=== PATIENT | male | born 1960 | race Caucasian/White ===

== ENCOUNTER → 2020-04-07 | Outpatient (CLI) | payer OTHER ==
[2020-04-07 12:17] LABS: INR 0.9 (<1.2); Partial Thromboplastin Time 23.6 sec (22.0-30.0); Prothrombin Time 9.4 sec (9.0-12.0)
[2020-04-07 12:32] LABS: Appearance,Urine Clear (Clear); Bilirubin,Urine Negative (Negative); Blood,Urine Negative (Negative); Color,Urine Yellow; Glucose,Urine (UA) Negative (Negative); Ketones,Urine 1+ (Negative); Leukocyte Esterase,Urine Negative (Negative); Nitrite,Urine Negative (Negative); Protein,Urine Trace (Negative); Specific Gravity,Urine 1.015 (1.001-1.035); Urobilinogen,Urine <2.0 mg/dL (<2.0)
== END | disposition home or self-care (01) ==
LOC: LABPAT 10:10
PROVIDERS: ATTEND Orthopaedic Surgery
DX: Z01.818 Encounter for other preprocedural examination (principal); Z01.812 Encounter for preprocedural laboratory examination
CPT/HCPCS: 36415; 81003; 85610; 85730; 87070

== ENCOUNTER 2020-04-12 05:39 | Day surgery (SDC) | payer OTHER ==
[2020-04-06 10:47] VITALS: BMI 23.3
[~2020-04-12 05:39] MED LIST: ACETAMINOPHEN TAB 500 MG TAB PO ONE; GABAPENTIN 300 MG CAP PO ONE; MELOXICAM 7.5 MG TAB PO ONE; TRANEXAMIC ACID 1,000 MG in SODIUM CHLORIDE 0.9% 100 ML IVPB ONE
[2020-04-12] MEDS ORDERED: MIDAZOLAM 2 MG/2 ML VIAL IV PRN (05:45)
[2020-04-12] MEDS ORDERED: LIDOCAINE 1% (10MG/ML) FOR IV START INTRADERMA PRN (05:45)
[2020-04-12] MEDS ORDERED: DEXAMETHASONE SOD PHOSPHATE 10 MG/ML 1 ML VIAL IV ONE (05:45)
[2020-04-12] MEDS ORDERED: fentaNYL (PF) 50 MCG/ML 2 ML AMP IV PRN (05:45)
[2020-04-12] MEDS ORDERED: ONDANSETRON 4 MG/2 ML VIAL IVP ONE (05:45)
[2020-04-12] MEDS ORDERED: HYDROmorphone 0.5 MG/0.5 ML SYRINGE IVP PRN ×3 (05:45→07:09)
[2020-04-12] MEDS ORDERED: ACETAMINOPHEN TAB 500 MG TAB ONE (06:01)
[2020-04-12] MEDS: LACTATED RINGERS 1,000 ML IV SCH (06:20)
[2020-04-12] MEDS ORDERED: ceFAZolin 3,000 MG in SODIUM CHLORIDE 0.9% IRRIGATIO 3,000 ML IRRIGATION ONE (07:06)
[2020-04-12] MEDS ORDERED: diazePAM 5 MG TAB PO PRN (07:09)
[2020-04-12] MEDS ORDERED: NALOXONE 0.4 MG/ML 1 ML VIAL IV PRN (07:09)
[2020-04-12] MEDS ORDERED: MAGNESIUM HYDROXIDE 2,400 MG/10 ML CUP PO PRN (07:09)
[2020-04-12] MEDS ORDERED: HYDROcodone/APAP 5-325MG 1 EACH TAB PO PRN (07:09)
[2020-04-12] MEDS ORDERED: HYDROmorphone 1 MG/ML 1 ML SYRINGE IVP PRN (07:09)
[2020-04-12] MEDS ORDERED: ONDANSETRON 4 MG/2 ML VIAL IVP PRN (07:09)
[2020-04-12] MEDS ORDERED: hydrOXYzine pamoate 25 MG CAP PO PRN (07:09)
[2020-04-12] MEDS: ROPIVACAINE 246.25 MG, EPINEPHrine 0.5 MG, KETOROLAC 30 MG, cloNIDine HCL/PF 80 MCG, WA... MISCELLANE ONE ×10 (07:47→08:21)
[2020-04-12] MEDS ORDERED: LACTATED RINGERS 1,000 ML IV ONE (08:14)
--- NOTE | 2020-04-12 08:45 | P.OP ---
Date of Procedure: 04/12/20 Preoperative Diagnosis: Severe osteoarthritis right hip Postoperative Diagnosis: Severe osteoarthritis right hip Procedure(s) Performed: Right total hip arthroplasty with a direct anterior approach Implants: Anna and nephew Polarstem size 6 standard Anna & Nephew R3, 3 hole acetabular shell, 52 mm Anna & Nephew reflection 6.5 mm cancellus screw, 20 mm 2 Anna & Nephew R3, XLPE 20 acetabular liner Anna & Nephew Oxinium femoral head 36 m, +4 All components were press-fit. The articulation is Oxinium on polyethylene. Anesthesia: spinal Surgeon: Artem Howell Senior Peoplesoft Developer #1: Opal Rico Estimated Blood Loss (ml): 150 Pathology: other (Femoral head) Condition: stable Disposition: PACU Indications for Procedure: After failure of conservative treatment we discussed the surgical and nonsurgical treatment options at length. Patient wishes to proceed with a total hip arthroplasty with a direct anterior approach. Complications specific to this procedure were discussed at length, including but not limited to infection, leg length discrepancy, dislocation, and nerve injury. Covid-19 was also discussed at length with the patient, and they are aware of the current policies and procedures. The patient was given the option of delaying surgery, but they elect to proceed knowing these risks. Patient is aware of all these complications and informed consent was obtained Operative Findings: The operative findings are consistent with severe osteoarthritis the right hip Description of Procedure: Patient was seen and evaluated in the preoperative area, consent was reviewed, and the surgical site was marked with a skin marker. Patient was then brought to the operating room and given prophylactic antibiotics intravenously. 1 g of Tranexamic acid was also given. A spinal anesthetic was administered by the anesthesia department. The patient was then placed on the [place] table with the bony prominences well-padded. The hip area was then prepped and draped in usual sterile fashion. A universal timeout was then performed, which confirmed the patient's name, surgical site, ALLERGIES, and procedure being performed. Next the incision site was located at 1 cm distal and 1 cm lateral to the anterior superior iliac spine. The skin and subcutaneous tissues were sharply incised. Incision was carefully dissected down to the fascia overlying the tensor fascia camilo muscle. This fascia was then incised in line with the incision. Next, using blunt finger dissection, the tensor fascia camilo muscle was dissected off its investing fascia. The muscle was then carefully retracted laterally with a cobra retractor over the lateral neck of the femur. Next, the circumflex vessels were identified and cauterized using the AquaMantis device. The anterior hip capsule was then exposed. The capsule was then opened and an inverted T fashion. Cobra retractors were then placed intracapsularly. The proximal femur was then visualized. The femoral neck was then osteotomized appropriate level above the lesser trochanter. Small amount of traction was placed with the [place] table. A small wedge of bone was then removed from the remaining femoral head. Next, using a corkscrew femoral head was easily removed from the acetabulum. On gross visual inspection, the femoral head had complete loss of articular cartilage in multiple periarticular osteophytes. Attention was then turned to the acetabulum. the acetabulum was exposed and any remaining labrum was excised. Sequential reaming of the acetabulum was performed using fluoroscopic guidance. When the appropriate size was reached, a trial was then placed. The position and fit of the trial was checked with fluoroscopy. The trial was then removed. Then, using fluoroscopic guidance, the final implant was impacted at 20 of anteversion and 40 of abduction, and fully seated in the acetabulum. 2 screws were then placed in the acetabulum. Again fluoroscopy was used to check po sition of the screws. Next, the liner was then impacted, with a 20 elevated liner located in the anterior superior quadrant. Component locking was confirmed. Attention was then directed to the femur. With the aid of the [place] table, the femur was externally rotated to approximately 130, extended, and abducted under the opposite leg. A side hook was then placed under the proximal femur, and the side hook elevator was used to elevate the proximal femur. Retractors were then placed. A capsular release was performed, as well as a release of the conjoined tendon, which afforded excellent visualization of the proximal femur. Next, a box osteotome was used to lateralize the proximal femur. A baseball sewer hand was then used to locate the femoral canal. Sequential broaching was then performed with appropriate size which afforded excellent fixation in the proximal femur. A trial was then placed with appropriate head and neck, and the hip was gently reduced with the aid of the [place] table. Fluoroscopy was then used to check position of the components, as well as to ensure equal leg lengths. The hip was then gently dislocated and the trials were then removed. Final implants were then impacted and the hip was again reduced. Final fluoroscopic x-rays confirmed that the components were in anatomic position, as well as equal leg lengths. The hip was also taken through range of motion, and found to be stable. The hip was then copiously irrigated with antibiotic solution with pulsatile lavage. The hip was then irrigated with Irrisept solution. The soft tissues were then injected with a ropivacaine solution, which consisted of 246.25 mg of ropivacaine, 0.5 mg of epinephrine, 30 mg of Toradol, 80 g of clonidine, and 48.45 mL of sterile water, for a total of 100 mL of fluid injected. A second dose of 1 g of Tranexamic acid was also given. the fascia was then closed with 2-0 strata fix suture. The subcutaneous tissue was closed with 3-0 Vicryl. The subcuticular tissue was closed with 3-0 strata fix suture. The skin was then closed with Dermabond glue and a sterile silver dressing. The patient was then transferred to the recovery room in stable condition. The accounts receivable assistant KOJO Bender was required due to the complexity of surgery, and the need for skilled surgical instrument technician for positioning, draping, exposure, retraction, and closure of the wound.
--- NOTE | 2020-04-12 08:49 | FL ---
EXAMINATION TYPE: FL guidance operating room DATE OF EXAM: 04/12/2020 HISTORY: Fluoroscopy time 36 seconds of fluoroscopy provided. IMPRESSION: 1. Fluoroscopy time.
--- NOTE | 2020-04-12 08:53 | XR ---
EXAMINATION TYPE: XR Hip Complete RT DATE OF EXAM: 04/12/2020 COMPARISON: NONE HISTORY: Postop TECHNIQUE: One view submitted. FINDINGS: There is postsurgical change in near anatomic alignment. There is soft tissue edema and emphysema. IMPRESSION: 1. Postoperative change. Appears in near-anatomic alignment.
[2020-04-12] MEDS: SODIUM CHLORIDE 0.9% 1,000 ML IV SCH (10:20)
[2020-04-12] MEDS: LOSARTAN 50 MG TAB PO SCH (11:31)
[2020-04-12] MEDS: NICOTINE 21MG/24HR PATCH TRANSDERM SCH (11:32)
--- NOTE | 2020-04-12 11:54 | P.HPIM ---
History of Present Illness Chief Complaint: Right hip osteoarthritis This is a 59-year-old male with past medical history noted below significant for severe osteoarthritis of the right hip who was admitted to the hospital for elective total right hip arthroplasty. Patient is postoperative day #0. He is doing fairly well. Pain is well controlled. He does not have any complaints. I was asked to see him for medical management. Patient reported that he smokes one pack of cigarettes per day. Review of Systems Review of system: 14 points review of systems were obtained and were negative except to what were mentioned in the HPI. Past Medical History Past Medical History: Cancer, Hypertension, Osteoarthritis (OA) Additional Past Medical History / Comment(s): HX RIGHT KIDNEY CANCER (NEPHRECTOMY 28 YRS OLD), BACK AND RIGHT HIP PAIN. History of Any Multi-Drug Resistant Organisms: None Reported Past Surgical History: Orthopedic Surgery Additional Past Surgical History / Comment(s): RIGHT NEPHRECTOMY, LEFT ANKLE & LEFT ARM SURGERY WITH HARDWARE. Past Anesthesia/Blood Transfusion Reactions: No Reported Reaction Past Psychological History: No Psychological Hx Reported Smoking Status: Heavy tobacco smoker Past Alcohol Use History: Daily Additional Past Alcohol Use History / Comment(s): SMOKES 1 PPD, STARTED SMOKING AGE 14. DRINKS 2-3 BEERS / DAILY Past Drug Use History: Marijuana Additional Drug Use History / Comment(s): OCCASIONAL MARIJUANA USE. - Past Family History Mother Family Medical History: No Reported History Medications and Allergies Home Medications Medication Instructions Recorded Confirmed Type Ibuprofen [Motrin Ib] 400 mg PO DIRECTED PRN 04/06/20 04/12/20 History Losartan Potassium 100 mg PO DAILY 04/06/20 04/12/20 History traMADol HCl [Ultram] 50 mg PO DAILY PRN 04/06/20 04/12/20 History Allergies Allergy/AdvReac Type Severity Reaction Status Date / Time Penicillins Allergy Unknown Swelling, Verified 04/12/20 05:57 childhood Physical Exam Vitals: Vital Signs Temp Pulse Pulse Resp BP Pulse Ox 04/12/20 10:17 16 04/12/20 10:00 97.4 F L 58 L 16 174/91 100 04/12/20 09:30 55 L 16 160/72 100 04/12/20 09:15 62 16 149/68 100 04/12/20 09:00 66 16 159/72 100 04/12/20 08:50 97.3 F L 73 16 144/69 100 04/12/20 06:22 151/97 04/12/20 06:02 97.6 F 115 H 18 100 Intake and Output 04/11/20 04/12/20 04/12/20 22:59 06:59 14:59 Intake Total 200 1201 Output Total 150 Balance 200 1051 Intake: IV 200 1201 Output: Estimated Blood Loss 150 Other: Weight 73.1 kg 73.1 kg General: The patient is awake and alert, in no distress Eye: there is normal conjunctiva bilaterally. Neck: The neck is supple, there is no JVD. Cardiovascular: Normal S1-S2, no S3-S4, no murmurs. Respiratory: Lungs clear to auscultation bilaterally Gastrointestinal: Abdomen is soft, nontender Musculoskeletal: There is no pedal edema. Neurological:. Speech is normal. Skin: Skin is warm and dry Thrombosis Risk Factor Assmnt - Choose All That Apply Any of the Below Risk Factors Present?: Yes Each Factor Represents 1 point: Age 41-60 years Each Risk Factor Represents 2 Points: Major surgery Each Risk Factor Represents 5 Points: Elective major lower extremity arthoplasty Thrombosis Risk Factor Assessment Total Risk Factor Score: 8 Thrombosis Risk Factor Assessment Level: High Risk Assessment and Plan Assessment: 1. Postoperative day #0 status post total right hip arthroplasty. Postoperative care per orthopedic surgery. PT/OT evaluation. Pain control. 2. DVT prophylaxis, currently on full dose aspirin twice daily per orthopedic protocol 3. Essential hypertension, continue home dose of losartan 4. Tobacco abuse, counseled to quit. Nicotine patch ordered.
[2020-04-12] MEDS: HYDROcodone/APAP 5-325MG 1 EACH TAB PO PRN ×2 (14:31→19:34)
[2020-04-12 19:39] VITALS: RESP 18
[2020-04-12] MEDS ORDERED: SENNOSIDES-DOCUSATE SODIUM 1 EACH TAB PO SCH (21:00)
[2020-04-13] MEDS: SODIUM CHLORIDE 0.9% 1,000 ML IV SCH (00:06)
[2020-04-13] MEDS: HYDROcodone/APAP 5-325MG 1 EACH TAB PO PRN ×3 (00:36→12:49)
[2020-04-13] MEDS: LACTATED RINGERS 1,000 ML IV SCH (02:43)
[2020-04-13] MEDS: LOSARTAN 50 MG TAB PO SCH (08:24)
[2020-04-13] MEDS: NICOTINE 21MG/24HR PATCH TRANSDERM SCH (08:24)
[2020-04-13 08:48] LABS: Anisocytosis Slight; Basophils % (A) 0 %; Eosinophils # (A) 0.1 k/uL (0-0.7); Eosinophils % (A) 2 %; HGB 7.2 gm/dL (13.0-17.5); Hypochromasia Marked; Lymphocytes # (A) 0.8 k/uL (1.0-4.8); Lymphocytes % (A) 15 %; MCH 22.4 pg (25.0-35.0); MCHC 28.9 g/dL (31.0-37.0); MCV 77.4 fL (80.0-100.0); Mean Platelet Volume 7.8; Microcytosis Slight; Monocytes # (A) 0.4 k/uL (0-1.0); Monocytes % (A) 8 %; Neutrophils # (A) 3.8 k/uL (1.3-7.7); Neutrophils % (A) 74 %; Platelet Count 259 k/uL (150-450); RBC 3.23 m/uL (4.30-5.90); RDW 17.7 % (11.5-15.5); WBC 5.1 k/uL (3.8-10.6)
[2020-04-13] MEDS ORDERED: MELOXICAM 7.5 MG TAB PO SCH (09:00)
[2020-04-13] MEDS ORDERED: ASPIRIN 325 MG TAB PO SCH (09:00)
--- NOTE | 2020-04-13 09:07 | P.DS ---
Providers Expected date of discharge: 04/13/20 Attending physician: Artem Howell Consults: 04/12/20 07:09 Consult Physician Routine Consulting Provider: Angela Butler Consult Reason/Comments: medical management Do you want consulting provider notified?: Yes Primary care physician: Kingsley Saavedra - Discharge Diagnosis(es) (1) S/P total hip arthroplasty Current Visit: Yes Status: Acute (2) Osteoarthritis of right hip Current Visit: Yes Status: Acute Hospital Course: This is a 59-year-old male with known history of degenerative arthritis of the right hip. The patient presents for evaluation. After discussion and consideration patient elects to proceed with total hip arthroplasty. The patient is seen preoperatively by Dr. Howell and medically cleared for surgery by their primary care physician. Patient is admitted to [facility] on 04/12/2020 for total hip arthroplasty. The procedures performed without complication or sequelae. The patient is doing well postoperatively. Labs and vital signs are stable on day of discharge. On day of discharge patient's hip incision is healing well. There is minimal erythema. There is no drainage noted at this time. There is minimal soft tissue swelling to the hip and thigh. Patient has full foot and ankle motion without difficulty or pain. Calf is soft and nontender to palpation. Neurovascular status to the right lower extremity is intact. [facility] is [facility] home in good condition. Opioid start talking form is reviewed and signed at patient bedside. Please see med rec for accurate list of home medications. Plan - Discharge Summary Discharge Rx Participant: Yes New Discharge Prescriptions: New Aspirin 325 mg PO BID #60 tab HYDROcodone/APAP 5-325MG [Superior 5-325] 1 - 2 tab PO Q6HR PRN #48 tab PRN Reason: Pain Sennosides [Senokot] 2 tab PO DAILY PRN #60 tablet PRN Reason: Constipation No Action Losartan Potassium 100 mg PO DAILY traMADol HCl [Ultram] 50 mg PO DAILY PRN PRN Reason: Pain Ibuprofen [Motrin Ib] 400 mg PO DIRECTED PRN PRN Reason: Pain Discharge Medication List Ibuprofen [Motrin Ib] 400 mg PO DIRECTED PRN 04/06/20 [History] Losartan Potassium 100 mg PO DAILY 04/06/20 [History] traMADol HCl [Ultram] 50 mg PO DAILY PRN 04/06/20 [History] Aspirin 325 mg PO BID #60 tab 04/13/20 [Rx] HYDROcodone/APAP 5-325MG [Superior 5-325] 1 - 2 tab PO Q6HR PRN #48 tab 04/13/20 [Rx] Sennosides [Senokot] 2 tab PO DAILY PRN #60 tablet 04/13/20 [Rx] Follow up Appointment(s)/Referral(s): [facility], [NON-STAFF] - Artem Howell DO [Doctor of Osteopathic Medicine] - 2 Weeks Activity/Diet/Wound Care/Special Instructions: Weightbearing as tolerated with walker. Leave dressing intact. Dressing may be removed by home care nurse or by patient in 10 days. May shower with dressing on. Recommend use of compression stockings daily until follow up to help prevent swelling and blood clots. May remove at night before sleeping. Please follow-up with [facility] in 2 weeks and call with any questions or concerns, . Discharge Disposition: HOME WITH HOME HEALTH SERVICES
[2020-04-13 14:29] LABS: Anisocytosis Slight; HCT 24.6 % (39.0-53.0); HGB 7.5 gm/dL (13.0-17.5); Hypochromasia Marked; MCHC 30.3 g/dL (31.0-37.0); MCV 79.1 fL (80.0-100.0); Mean Platelet Volume 7.2; Microcytosis Slight; Platelet Count 291 k/uL (150-450); RBC 3.11 m/uL (4.30-5.90); RDW 17.3 % (11.5-15.5); WBC 6.4 k/uL (3.8-10.6)
--- NOTE | 2020-04-13 16:06 | P.PN ---
Subjective Progress Note Date: 04/13/20 (delayed charting seen at 0945) Principal diagnosis: hip pain Patient is a 59-year-old male with a past medical history of kidney cancer, hypertension, and osteoarthritis who presented for elective right total hip arthroplasty. Patient seen and examined at bedside. He states his pain is well controlled. He denies any swelling in his hip or knee. He denies any lightheadedness, dizziness, shortness of breath, or chest pain. He states that his hemoglobin was low during his preoperative evaluation with his primary care nurse practitioner. HgB at PCP was 9.2 Objective - Vital Signs Vital signs: Vital Signs Temp 98.3 F 04/13/20 14:43 Pulse 96 04/13/20 14:43 Resp 18 04/13/20 14:43 BP 108/74 04/13/20 14:43 Pulse Ox 100 04/13/20 14:43 Intake & Output 04/12/20 04/13/20 04/13/20 18:59 06:59 18:59 Intake Total 1201 Output Total 550 350 Balance 651 -350 Weight 73.1 kg Intake: IV 1201 Output: Urine 400 350 Estimated Blood Loss 150 Other: # Voids 1 3 - Exam General: non toxic, no distress, appears at stated age Derm: warm, dry Head: atraumatic, normocephalic, symmetric Eyes: EOMI, no lid lag, anicteric sclera Mouth: no lip lesion, mucus membranes moist Cardiovascular: S1S2 reg, no murmur, positive posterior tibial pulse bilateral, Lungs: CTA bilateral, no rhonchi, no rales , no accessory muscle use Abdominal: soft, nontender to palpation, no guarding, no appreciable organomegaly Ext: no gross muscle atrophy, no edema, no contractures Neuro: CN II-XI grossly intact, no focal neuro deficits Psych: Alert, oriented, appropriate affect - Labs CBC & Chem 7: 04/13/20 11:32 Labs: Abnormal Lab Results - Last 24 Hours (Table) 04/13/20 04/13/20 Range/Units 08:33 11:32 RBC 3.23 L 3.11 L (4.30-5.90) m/uL Hgb 7.2 L 7.5 L (13.0-17.5) gm/dL Hct 25.0 L 24.6 L (39.0-53.0) % MCV 77.4 L 79.1 L (80.0-100.0) fL MCH 22.4 L 24.0 L (25.0-35.0) pg MCHC 28.9 L 30.3 L (31.0-37.0) g/dL RDW 17.7 H 17.3 H (11.5-15.5) % Lymphocytes # 0.8 L (1.0-4.8) k/uL Assessment and Plan Assessment: Chronic anemia with acute blood loss anemia -Ferrous sulfate 325 mg once daily oral for 30 days -Called PCPs office baseline hemoglobin is 9.2, repeat CBC approximately 6 hours after first is 7.5 which is stable from 7.2. -Repeat CBC in 1 week -Follow up with PCP Hypertension -Resume home medications of losartan Right knee hip arthroplasty Medically stable for discharge.
[2020-04-15 05:19] VITALS: BP 108/74; PULSE 96; TEMP 98.3
== END 2020-04-13 16:38 | disposition home health service (06) ==
LOC: OR 05:39 → 4SSUR 09:04 → OR 04-13 16:38
PROVIDERS: ATTEND Orthopaedic Surgery
DX: M16.0 Bilateral primary osteoarthritis of hip (principal); I12.9 Hypertensive chronic kidney disease with stage 1 through stage 4 chronic kidney disease, or unspecified chronic kidney disease; N18.9 Chronic kidney disease, unspecified; D62 Acute posthemorrhagic anemia; F17.210 Nicotine dependence, cigarettes, uncomplicated; Z85.528 Personal history of other malignant neoplasm of kidney; Z79.1 Long term (current) use of non-steroidal anti-inflammatories (NSAID); Z79.899 Other long term (current) drug therapy; Z88.0 Allergy status to penicillin; Z90.5 Acquired absence of kidney; Z82.49 Family history of ischemic heart disease and other diseases of the circulatory system; Z98.49 Cataract extraction status, unspecified eye
CPT/HCPCS: 27130; 97116; 97110; 97161; 97535; 97165; 86891; 88305; 85025; 85027; 88311; 73501; 73502; C1776; S4990 ×2; J0171; J1100; J0690 ×2; J2405; J1885; J1170; J2795; J0735; 86850; 86900; 86901

== ENCOUNTER → 2020-06-23 | Outpatient (CLI) | payer OTHER ==
[2020-06-23 14:41] LABS: Anisocytosis Slight; HCT 31.9 % (39.0-53.0); HGB 9.5 gm/dL (13.0-17.5); Hypochromasia Marked; MCH 22.2 pg (25.0-35.0); MCHC 29.8 g/dL (31.0-37.0); MCV 74.4 fL (80.0-100.0); Mean Platelet Volume 6.7; Microcytosis Moderate; Platelet Count 342 k/uL (150-450); RBC 4.29 m/uL (4.30-5.90); RDW 17.5 % (11.5-15.5); WBC 6.3 k/uL (3.8-10.6)
[2020-06-23 14:45] LABS: Appearance,Urine Clear (Clear); Bilirubin,Urine Negative (Negative); Blood,Urine Negative (Negative); Color,Urine Yellow; Glucose,Urine (UA) Negative (Negative); Ketones,Urine 1+ (Negative); Leukocyte Esterase,Urine Negative (Negative); Nitrite,Urine Negative (Negative); PH, Urine 6.5 (5.0-8.0); Protein,Urine Trace (Negative); Specific Gravity,Urine 1.016 (1.001-1.035); Urobilinogen,Urine <2.0 mg/dL (<2.0)
[2020-06-23 14:53] LABS: Albumin 4.2 g/dL (3.5-5.0); Calcium 9.5 mg/dL (8.4-10.2); INR 0.9 (<1.2); Partial Thromboplastin Time 24.9 sec (22.0-30.0); Potassium 5.2 mmol/L (3.5-5.1); Prothrombin Time 9.6 sec (9.0-12.0); Total Bilirubin 0.5 mg/dL (0.2-1.3); Total Protein 7.3 g/dL (6.3-8.2)
== END | disposition home or self-care (01) ==
LOC: LABPAT 13:28
PROVIDERS: ATTEND Orthopaedic Surgery
DX: Z01.818 Encounter for other preprocedural examination (principal); Z01.812 Encounter for preprocedural laboratory examination; M16.12 Unilateral primary osteoarthritis, left hip
CPT/HCPCS: 36415; 80053; 81003; 85027; 85610; 85730

== ENCOUNTER 2020-06-28 06:19 | Observation (INO) | payer OTHER ==
[2020-06-23 18:30] VITALS: BMI 23.4
[~2020-06-28 06:19] MED LIST changes: +DEXAMETHASONE SOD PHOSPHATE 10 MG/ML 1 ML VIAL IV ONE; +LIDOCAINE 1% (10MG/ML) FOR IV START INTRADERMA PRN; +MIDAZOLAM 2 MG/2 ML VIAL IV PRN; +ONDANSETRON 4 MG/2 ML VIAL IVP ONE; +ROPIVACAINE 246.25 MG, EPINEPHrine 0.5 MG, KETOROLAC 30 MG, cloNIDine HCL/PF 80 MCG, WA... MISCELLANE ONE
[2020-06-28] MEDS ORDERED: LIDOCAINE 1% (10MG/ML) FOR IV START INTRADERMA ONE (07:19)
[2020-06-28] MEDS: LACTATED RINGERS 1,000 ML IV SCH ×2 (07:35→22:54)
[2020-06-28] MEDS ORDERED: TRANEXAMIC ACID 1,000 MG/10 ML VIAL ONE (08:51)
[2020-06-28] MEDS ORDERED: SODIUM CHLORIDE 0.9% 100 ML BAG ONE (08:51)
[2020-06-28] MEDS ORDERED: KETAMINE 10 MG/ML 20 ML VIAL ONE (08:51)
[2020-06-28] MEDS ORDERED: fentaNYL (PF) 50 MCG/ML 2 ML AMP ONE (08:51)
[2020-06-28] MEDS ORDERED: MIDAZOLAM 2 MG/2 ML VIAL ONE (08:51)
[2020-06-28] MEDS ORDERED: PROPOFOL 10 MG/ML 20 ML VIAL IV ONE (08:51)
[2020-06-28] MEDS ORDERED: hydrOXYzine pamoate 25 MG CAP PO PRN (09:18)
[2020-06-28] MEDS ORDERED: NALOXONE 0.4 MG/ML 1 ML VIAL IV PRN (09:18)
[2020-06-28] MEDS ORDERED: MAGNESIUM HYDROXIDE 2,400 MG/10 ML CUP PO PRN (09:18)
[2020-06-28] MEDS ORDERED: HYDROmorphone 0.5 MG/0.5 ML SYRINGE IVP PRN (09:18)
[2020-06-28] MEDS ORDERED: diazePAM 5 MG TAB PO PRN (09:18)
[2020-06-28] MEDS ORDERED: HYDROcodone/APAP 5-325MG 1 EACH TAB PO PRN (09:18)
[2020-06-28] MEDS ORDERED: ONDANSETRON 4 MG/2 ML VIAL IVP PRN (09:18)
[2020-06-28] MEDS ORDERED: ceFAZolin 3,000 MG in SODIUM CHLORIDE 0.9% IRRIGATIO 3,000 ML IRRIGATION ONE (09:30)
--- NOTE | 2020-06-28 10:33 | P.OP ---
Date of Procedure: 06/28/20 Preoperative Diagnosis: Severe osteoarthritis left hip Postoperative Diagnosis: Severe osteoarthritis left hip Procedure(s) Performed: Left total hip arthroplasty with a direct anterior approach Implants: Anna and nephew Polarstem size 6 standard Anna & Nephew R3, 3 hole acetabular shell, 58 mm Anna & Nephew reflection 6.5 mm cancellus screw, 20 mm 2 Anna & Nephew R3, XLPE 20 acetabular liner Anna & Nephew Oxinium femoral head 36 m, +4 All components were press-fit. The articulation is Oxinium on polyethylene. Anesthesia: spinal Surgeon: Artem Howell Strategic Analyst #1: Penny Metzger Estimated Blood Loss (ml): 100 Pathology: other (Femoral head) Condition: stable Disposition: PACU Indications for Procedure: After failure of conservative treatment we discussed the surgical and nonsurgical treatment options at length. Patient wishes to proceed with a total hip arthroplasty with a direct anterior approach. Complications specific to this procedure were discussed at length, including but not limited to infection, leg length discrepancy, dislocation, and nerve injury. Covid-19 was also discussed at length with the patient, and they are aware of the current policies and procedures. The patient was given the option of delaying surgery, but they elect to proceed knowing these risks. Patient is aware of all these complications and informed consent was obtained Operative Findings: The operative findings are consistent with severe osteoarthritis of the left hip Description of Procedure: Patient was seen and evaluated in the preoperative area, consent was reviewed, and the surgical site was marked with a skin marker. Patient was then brought to the operating room and given prophylactic antibiotics intravenously. 1 g of Tranexamic acid was also given. A spinal anesthetic was administered by the anesthesia department. The patient was then placed on the [place] table with the bony prominences well-padded. The hip area was then prepped and draped in usual sterile fashion. A universal timeout was then performed, which confirmed the patient's name, surgical site, ALLERGIES, and procedure being performed. Next the incision site was located at 1 cm distal and 1 cm lateral to the anterior superior iliac spine. The skin and subcutaneous tissues were sharply incised. Incision was carefully dissected down to the fascia overlying the tensor fascia camilo muscle. This fascia was then incised in line with the incision. Next, using blunt finger dissection, the tensor fascia camilo muscle was dissected off its investing fascia. The muscle was then carefully retracted laterally with a cobra retractor over the lateral neck of the femur. Next, the circumflex vessels were identified and cauterized using the AquaMantis device. The anterior hip capsule was then exposed. The capsule was then opened and an inverted T fashion. Cobra retractors were then placed intracapsularly. The proximal femur was then visualized. The femoral neck was then osteotomized appropriate level above the lesser trochanter. Small amount of traction was placed with the [place] table. A small wedge of bone was then removed from the remaining femoral head. Next, using a corkscrew femoral head was easily removed from the acetabulum. On gross visual inspection, the femoral head had complete loss of articular cartilage in multiple periarticular osteophytes. Attention was then turned to the acetabulum. the acetabulum was exposed and any remaining labrum was excised. Sequential reaming of the acetabulum was performed using fluoroscopic guidance. When the appropriate size was reached, a trial was then placed. The position and fit of the trial was checked with fluoroscopy. The trial was then removed. Then, using fluoroscopic guidance, the final implant was impacted at 20 of anteversion and 40 of abduction, and fully seated in the acetabulum. 2 screws were then placed in the acetabulum. Again fluoroscopy was used to check pos ition of the screws. Next, the liner was then impacted, with a 20 elevated liner located in the anterior superior quadrant. Component locking was confirmed. Attention was then directed to the femur. With the aid of the [place] table, the femur was externally rotated to approximately 130, extended, and abducted under the opposite leg. A side hook was then placed under the proximal femur, and the side hook elevator was used to elevate the proximal femur. Retractors were then placed. A capsular release was performed, as well as a release of the conjoined tendon, which afforded excellent visualization of the proximal femur. Next, a box osteotome was used to lateralize the proximal femur. A retail pharmacy merchandiser was then used to locate the femoral canal. Sequential broaching was then performed with appropriate size which afforded excellent fixation in the proximal femur. A trial was then placed with appropriate head and neck, and the hip was gently reduced with the aid of the [place] table. Fluoroscopy was then used to check position of the components, as well as to ensure equal leg lengths. The hip was then gently dislocated and the trials were then removed. Final implants were then impacted and the hip was again reduced. Final fluoroscopic x-rays confirmed that the components were in anatomic position, as well as equal leg lengths. The hip was also taken through range of motion, and found to be stable. The hip was then copiously irrigated with antibiotic solution with pulsatile lavage. The hip was then irrigated with Irrisept solution. The soft tissues were then injected with a ropivacaine solution, which consisted of 246.25 mg of ropivacaine, 0.5 mg of epinephrine, 30 mg of Toradol, 80 g of clonidine, and 48.45 mL of sterile water, for a total of 100 mL of fluid injected. A second dose of 1 g of Tranexamic acid was also given. the fascia was then closed with 2-0 strata fix suture. The subcutaneous tissue was closed with 3-0 Vicryl. The subcuticular tissue was closed with 3-0 strata fix suture. The skin was then closed with Dermabond glue and a sterile silver dressing. The patient was then transferred to the recovery room in stable condition. The printing assistant KOJO Ryan was required due to the complexity of surgery, and the need for skilled surgical assistant certified for positioning, draping, exposure, retraction, and closure of the wound.
[2020-06-28] MEDS: HYDROmorphone 0.5 MG/0.5 ML SYRINGE IVP PRN ×3 (11:45→16:50)
--- NOTE | 2020-06-28 13:27 | XR ---
Left hip HISTORY: Status post left hip arthroplasty Single frontal view of the left hip Patient is status post left hip arthroplasty. There is anatomic alignment. Lucency is present in the soft tissues consistent with postop state. Small ossific fragments inferior to the left hip joint are likely postoperative. IMPRESSION: Orthopedic follow-up.
--- NOTE | 2020-06-28 13:35 | XR ---
Limited left hip HISTORY: Anterior hip replacement 2 intraoperative C-arm images document the procedure
--- NOTE | 2020-06-28 13:35 | FL ---
Fluoroscopy HISTORY: Anterior hip replacement 1.02 minutes fluoroscopy time supplied to the referring clinician. 2 intraoperative C-arm images doc ument the procedure. See dictated report from orthopedic surgery.
[2020-06-28] MEDS: SODIUM CHLORIDE 0.9% 1,000 ML IV SCH ×2 (13:54→23:10)
[2020-06-28] MEDS: HYDROcodone/APAP 5-325MG 1 EACH TAB PO PRN ×2 (14:26→22:09)
[2020-06-28] MEDS ORDERED: NICOTINE 14MG/24HR PATCH TRANSDERM SCH (16:45)
[2020-06-28] MEDS: ASPIRIN 325 MG TAB PO SCH (19:54)
[2020-06-28] MEDS: HYDROmorphone 1 MG/ML 1 ML SYRINGE IVP PRN (19:54)
[2020-06-28] MEDS ORDERED: SENNOSIDES-DOCUSATE SODIUM 1 EACH TAB PO SCH (21:00)
--- NOTE | 2020-06-28 21:47 | P.CONS ---
History of Present Illness - Reason for Consult Consult date: 06/28/20 Medical management Requesting physician: Artem Howell - Chief Complaint Left hip surgery - History of Present Illness Consultation: This is a pleasant 59 year patient being followed by Dr. Saavedra. Chronic stable medical conditions include essential hypertension, right nephrectomy for history of kidney cancer, nicotine dependence with cigarette smoking, osteoarthritis in multiple joints. Patient today underwent left total hip arthroplasty. Pain is controlled. No nausea vomiting. Did tolerate some supper. No chest pain or shortness of breath currently. Review of systems: GEN.: Tired EYES: None HEENT: None NECK: None RESPIRATORY: None CARDIOVASCULAR: None GASTROINTESTINAL: None GENITOURINARY: None MUSCULOSKELETAL: Joint pains LYMPHATICS: None HEMATOLOGICAL: None PSYCHIATRY: None NEUROLOGICAL: None Past medical history to include: Hypertension, osteoarthritis, right kidney cancer with nephrectomy and patient's 28 years old, bilateral eye cataract Social history: Smoking a pack a day since the age of 14, drinks 2 or 3 beers a day. Occasional marijuana use. Lives alone. Used to be a contractor. Physical examination: VITAL SIGNS: 98.2, 86, 16, 134/90, 98% on room air GENERAL: 23.8, laying in bed, awake comfortable. EYES: Pupils equal. Conjunctiva normal. HEENT: External appearance of nose and ears normal, oral cavity grossly normal. NECK: JVD not raised; masses not palpable. HEART: First and second heart sounds are normal; no edema. LUNGS: Respiratory rate normal; decreased breath sounds. ABDOMEN: Soft, nontender, liver spleen not palpable, no masses palpable. PSYCH: Alert and oriented x3; mood and affect normal MUSCULAR skeletal: Or evidence of OA, dressing over the left hip incision. NEUROLOGICAL: Cranial nerves grossly intact; no facial asymmetry, power and sensation grossly intact. LYMPHATICS: No lymph nodes palpable in the axilla and neck INVESTIGATIONS, reviewed in the clinical context: Lab work from June 23. White count 6.3 hemoglobin 9.5 potassium 5.2 creatinine 1.17 Repeat potassium today 4.7 Assessment: -Left total hip arthroplasty -Essential hypertension -Primary osteoarthritis multiple joints -Chronic nicotine dependence cigarette smoker Plan: Patient is an aspirin for DVT prophylaxis by Dr. Howell. Home medications resumed. Care was discussed with the patient. Patient advised against smoking. Given nicotine patch. Thank you Dr. Howell Past Medical History Past Medical History: Cancer, Hypertension, Osteoarthritis (OA) Additional Past Medical History / Comment(s): HX RIGHT KIDNEY CANCER (NEPHRECTOMY 28 YRS OLD), LOWER BACK AND LEFT HIP PAIN. cataracts [place] eye History of Any Multi-Drug Resistant Organisms: None Reported Past Surgical History: Orthopedic Surgery Additional Past Surgical History / Comment(s): RIGHT NEPHRECTOMY, ORIF LEFT ANKLE (compound fx), ORIF LEFT ARM WITH HARDWARE. Total Rt Hip 04/12/20. Past Anesthesia/Blood Transfusion Reactions: No Reported Reaction Past Psychological History: No Psychological Hx Reported Smoking Status: Current every day smoker Past Alcohol Use History: Daily Additional Past Alcohol Use History / Comment(s): SMOKES 1 PPD, STARTED SMOKING AGE 14. DRINKS 2-3 BEERS / DAILY Past Drug Use History: Marijuana Additional Drug Use History / Comment(s): OCCASIONAL MARIJUANA USE. - Past Family History Mother Family Medical History: No Reported History Medications and Allergies Home Medications Medication Instructions Recorded Confirmed Type Losartan Potassium 100 mg PO DAILY 04/06/20 06/28/20 History traMADol HCl [Ultram] 50 mg PO Q4-6H PRN 04/06/20 06/28/20 History Pnv,Calcium 72/Iron/Folic Acid 1 each PO DAILY 06/23/20 06/28/20 History [ Plus Tablet] Allergies Allergy/AdvReac Type Severity Reaction Status Date / Time Penicillins Allergy Unknown Swelling, Verified 06/23/20 18:10 childhood Physical Exam Vitals: Vital Signs Temp Pulse Pulse Resp BP Pulse Ox 06/28/20 19:02 98.2 F 86 134/90 98 06/28/20 13:23 97.7 F 67 16 151/94 100 06/28/20 13:02 74 16 132/76 99 06/28/20 12:32 74 16 144/85 97 06/28/20 12:02 80 16 131/56 97 06/28/20 11:45 72 16 136/72 96 06/28/20 11:31 139/68 06/28/20 11:30 61 16 121/60 100 06/28/20 11:15 68 16 121/60 99 06/28/20 11:04 96.8 F L 60 12 134/62 100 06/28/20 07:01 98.3 F 91 17 154/106 100 Intake and Output 06/28/20 06/28/20 06/28/20 06:59 14:59 22:59 Intake Total 1001 Output Total 100 Balance 901 Intake: IV 1001 Output: Estimated Blood Loss 100 Other: Voiding Method Toilet # Voids 2 Weight 76.2 kg Results CBC & Chem 7: 06/28/20 07:30
[2020-06-28] MEDS: NICOTINE 21MG/24HR PATCH TRANSDERM SCH (22:03)
[2020-06-29] MEDS: HYDROmorphone 1 MG/ML 1 ML SYRINGE IVP PRN (00:08)
[2020-06-29] MEDS: HYDROcodone/APAP 5-325MG 1 EACH TAB PO PRN (05:31)
[2020-06-29 05:36] LABS: Anisocytosis Slight; Basophils % (A) 0 %; Eosinophils # (A) 0.1 k/uL (0-0.7); Eosinophils % (A) 1 %; HCT 27.7 % (39.0-53.0); HGB 8.1 gm/dL (13.0-17.5); Hypochromasia Marked; Lymphocytes # (A) 1.2 k/uL (1.0-4.8); Lymphocytes % (A) 15 %; MCV 75.7 fL (80.0-100.0); Mean Platelet Volume 7.7; Microcytosis Slight; Monocytes # (A) 0.9 k/uL (0-1.0); Monocytes % (A) 12 %; Neutrophils # (A) 5.7 k/uL (1.3-7.7); Neutrophils % (A) 71 %; Platelet Count 369 k/uL (150-450); RBC 3.67 m/uL (4.30-5.90)
[2020-06-29 07:39] VITALS: BP 161/96; PULSE 82; RESP 14; TEMP 98.4
[2020-06-29] MEDS ORDERED: HYDROcodone/APAP 7.5-325MG 1 EACH TAB PO PRN ×2 (08:58)
[2020-06-29] MEDS ORDERED: PRENATAL VIT-IRON-FOLIC ACID 1 EACH CAP PO SCH (09:00)
[2020-06-29] MEDS ORDERED: LOSARTAN 50 MG TAB PO SCH (09:00)
--- NOTE | 2020-06-29 09:04 | P.DS ---
Providers Date of admission: 06/29/20 07:40 Expected date of discharge: 06/29/20 Attending physician: Artem Howell Consults: 06/28/20 09:18 Consult Physician Routine Consulting Provider: Shiraz Demarco Consult Reason/Comments: medical management Do you want consulting provider notified?: Yes Primary care physician: Kingsley Saavedra - Discharge Diagnosis(es) (1) Osteoarthritis of left hip Current Visit: Yes Status: Acute (2) Status post total hip replacement, left Current Visit: Yes Status: Acute Hospital Course: This is a 59-year-old male with known history of degenerative arthritis of the left hip. The patient presents for evaluation. After discussion and consideration patient elects to proceed with total hip arthroplasty. The patient is seen preoperatively by Dr. Howell and medically cleared for surgery by their primary care physician. Patient is admitted to [facility] on 06/28/2020 for total hip arthroplasty. The procedures performed without complication or sequelae. The p atient is doing well postoperatively. Labs and vital signs are stable on day of discharge. On day of discharge patient's hip incision is healing well. There is minimal erythema. There is no drainage noted at this time. There is minimal soft tissue swelling to the hip and thigh. Patient has full foot and ankle motion without difficulty or pain. Calf is soft and nontender to palpation. Neuro vascular status to the left lower extremity is intact. Patient is discharged home in good condition. Opioid start talking form is reviewed and signed at patient bedside. Please see med rec for accurate list of home medications. Plan - Discharge Summary Discharge Rx Participant: Yes New Discharge Prescriptions: New Aspirin 325 mg PO BID #60 tab HYDROcodone/APAP 7.5-325MG [[place] 7.5-325] 1 - 2 tab PO Q6H PRN #32 tab PRN Reason: Pain Sennosides [Senokot] 2 tab PO DAILY PRN #60 tablet PRN Reason: Constipation No Action Losartan Potassium 100 mg PO DAILY traMADol HCl [Ultram] 50 mg PO Q4-6H PRN PRN Reason: Pain Pnv,Calcium 72/Iron/Folic Acid [ Plus Tablet] 1 each PO DAILY Discharge Medication List Losartan Potassium 100 mg PO DAILY 04/06/20 [History] traMADol HCl [Ultram] 50 mg PO Q4-6H PRN 04/06/20 [History] Pnv,Calcium 72/Iron/Folic Acid [ Plus Tablet] 1 each PO DAILY 06/23/20 [History] Aspirin 325 mg PO BID #60 tab 06/29/20 [Rx] HYDROcodone/APAP 7.5-325MG [[place] 7.5-325] 1 - 2 tab PO Q6H PRN #32 tab 06/29/20 [Rx] Sennosides [Senokot] 2 tab PO DAILY PRN #60 tablet 06/29/20 [Rx] Follow up Appointment(s)/Referral(s): Kingsley Saavedra MD [Primary Care Provider] - 07/07/20 11:30 am Artem Howell DO [Doctor of Osteopathic Medicine] - 2 Weeks Activity/Diet/Wound Care/Special Instructions: Weightbearing as tolerated with walker. Leave dressing intact. Dressing may be removed by home care nurse or by patient in 10 days. May shower with dressing on. Please take aspirin 325mg twice daily for 30 days to prevent blood clots. Recommend use of compression stockings daily until follow up to help prevent swelling and blood clots. May remove at night before sleeping. Please follow-up with [facility] in 2 weeks and call with any questions or concerns, . Discharge Disposition: HOME WITH HOME HEALTH SERVICES
[2020-06-29] MEDS: ASPIRIN 325 MG TAB PO SCH (09:28)
[2020-06-29] MEDS: NICOTINE 21MG/24HR PATCH TRANSDERM SCH (09:29)
[2020-06-29] MEDS: HYDROmorphone 0.5 MG/0.5 ML SYRINGE IVP PRN (09:32)
--- NOTE | 2020-06-29 21:39 | P.PN ---
Progress Note - Text Progress Note Date: 06/29/20 - Chief Complaint Left hip surgery Consultation: This is a pleasant 59 year patient being followed by Dr. Herrmann. Chronic stable medical conditions include essential hypertension, right nephrectomy for history of kidney cancer, nicotine dependence with cigarette smoking, osteoarthritis in multiple joints. Patient today underwent left total hip arthroplasty. Today-some pain present. Otherwise doing well. Has been out of bed with therapy. No nausea vomiting. Did tolerate her breakfast. Review of systems: Was done for constitutional, cardiovascular, or skeletal skeletal: GI, pulmonary. relevant finding as above. Current medications reviewed in today's electronic records Physical examination: VITAL SIGNS: 98.4, 82, 14, 161-96, 100% on room air GENERAL: Sitting up, comfortable EYES: Pupils equal. Conjunctiva normal. NECK: JVD not raised; masses not palpable. HEART: First and second heart sounds are normal; no edema. LUNGS: Respiratory rate normal; decreased breath sounds. ABDOMEN: Soft, nontender, liver spleen not palpable, no masses palpable. PSYCH: Alert and oriented x3; mood and affect normal MUSCULAR skeletal: Or evidence of OA, dressing over the left hip incision. INVESTIGATIONS, reviewed in the clinical context: White count 8 hemoglobin 8.1 platelet 369 Lab work from June 23. White count 6.3 hemoglobin 9.5 potassium 5.2 creatinine 1.17 Repeat potassium today 4.7 Assessment: -Left total hip arthroplasty -Essential hypertension -Primary osteoarthritis multiple joints -Chronic nicotine dependence cigarette smoker -Acute postprocedure blood loss anemia-expected from surgery -Patient follow-up with his PCP for anemia Plan: Continue current medication. Plan. Care discussed with the patient. Follow-up with his PCP. Have a repeat CBC as an outpatient. copy being sent to dr herrmann Thank you Dr. Howell
== END 2020-06-29 13:42 | disposition home health service (06) ==
LOC: OR 06:19 → 4SSUR 13:10 → OR 06-29 07:40 → 4SSUR 06-29 07:40
PROVIDERS: ADMIT Orthopaedic Surgery; ATTEND Orthopaedic Surgery
DX: M16.12 Unilateral primary osteoarthritis, left hip (principal); D50.0 Iron deficiency anemia secondary to blood loss (chronic); F12.90 Cannabis use, unspecified, uncomplicated; F17.210 Nicotine dependence, cigarettes, uncomplicated; I10 Essential (primary) hypertension; Z85.528 Personal history of other malignant neoplasm of kidney; Z90.5 Acquired absence of kidney
CPT/HCPCS: 27130; 97110; 97161; 97165; 88305; 84132; 85025; 88311; 73501; G0378; C1776; S4990 ×3; J2250; J0171; J1100; J0690 ×2; J2405; J3010; J1885; J1170 ×4; S0197; J2795; J2704; J0735; 86850; 86900; 86901

== ENCOUNTER 2022-04-13 08:52 | Day surgery (SDC) | payer MEDICARE, OTHER ==
[2022-04-10 11:24] VITALS: BMI 23.4
[~2022-04-13 08:52] MED LIST changes: -ACETAMINOPHEN TAB 500 MG TAB PO ONE; -DEXAMETHASONE SOD PHOSPHATE 10 MG/ML 1 ML VIAL IV ONE; -GABAPENTIN 300 MG CAP PO ONE; +LACTATED RINGERS 1,000 ML IV SCH; -MELOXICAM 7.5 MG TAB PO ONE; -MIDAZOLAM 2 MG/2 ML VIAL IV PRN; -ONDANSETRON 4 MG/2 ML VIAL IVP ONE; -ROPIVACAINE 246.25 MG, EPINEPHrine 0.5 MG, KETOROLAC 30 MG, cloNIDine HCL/PF 80 MCG, WA... MISCELLANE ONE; -TRANEXAMIC ACID 1,000 MG in SODIUM CHLORIDE 0.9% 100 ML IVPB ONE
[2022-04-13 09:19] VITALS: RESP 16; TEMP 96.9
[2022-04-13] MEDS ORDERED: PROPOFOL 10 MG/ML 20 ML VIAL IV ONE (09:48)
[2022-04-13] MEDS ORDERED: LIDOCAINE 2% INJ 20 MG/ML (2 ML VIAL) ONE (09:48)
--- NOTE | 2022-04-13 10:10 | P.PCN ---
Date of Procedure: 04/13/22 Preoperative Diagnosis: Anemia Postoperative Diagnosis: Gastritis Duodenitis Internal hemorrhoids Procedure(s) Performed: EGD with biopsy Colonoscopy Anesthesia: MAC Surgeon: Airam Buckley Pathology: other (Biopsies of esophagus, antrum, duodenum) Condition: stable Disposition: same day Indications for Procedure: 61-year-old male with recently diagnosed anemia. He has never had endoscopy previously. Plan is for upper and lower endoscopy. Risks, benefits and alternatives were provided. Patient did provide consent. Operative Findings: Gastritis Duodenitis Overall normal-appearing colon Description of Procedure: The patient was brought to the endoscopy suite and placed in left lateral decubitus position and adequate sedation was achieved using conscious sedation. A bite block was placed and the endoscope was placed in the oropharynx and advanced under endoscopic visualization. The endoscope was advanced through the esophagus into the stomach, through the gastric antrum and in through the pylorus. The third portion of the duodenum was visualized. The endoscope was then slowly withdrawn. The first portion of the duodenum was noted to have mild inflammatory changes. Biopsies were taken. The antrum was noted to have mild inflammatory changes. Biopsies were taken. There is no evidence of ulceration. The gastric body distended normally and the gastric folds appeared normal and flattened with insufflation. A retroflexed view of the fundus and GE junction revealed no significant hiatal hernia. The esophagus appeared endoscopically normal. Biopsies of the distal esophagus were taken. Excess air was removed and the scope was withdrawn. A digital rectal exam was performed and mild internal hemorrhoids were palpated. An endoscope was then placed in the rectum and advanced to the cecum as identified by landmarks including the appendiceal orifice and the ileocecal valve. The prep was good. The colonoscope was then slowly withdrawn, examining for any mucosal abnormalities. The cecum, ascending, transverse, descending and sigmoid colon were visualized adequately. There were no large neoplastic lesions noted throughout the colon. There were no obvious polyps noted throughout the colon. There were no significant findings of inflammatory changes. Retroflexion was performed in the rectum and mild internal hemorrhoids were visible. Excess air was removed, the colonoscope withdrawn and the procedure terminated. The patient was then transferred to recovery unit in stable condition. Repeat colonoscopy should be performed in 8 years.
[2022-04-13 10:40] VITALS: BP 127/62; PULSE 83
== END 2022-04-13 10:51 | disposition home or self-care (01) ==
LOC: ORWHC2ENDO 08:52
PROVIDERS: ATTEND Surgery
DX: K29.50 Unspecified chronic gastritis without bleeding (principal); K20.90 Esophagitis, unspecified without bleeding; K29.80 Duodenitis without bleeding; K64.8 Other hemorrhoids; D64.9 Anemia, unspecified; I10 Essential (primary) hypertension; F17.210 Nicotine dependence, cigarettes, uncomplicated; Z90.5 Acquired absence of kidney; M19.90 Unspecified osteoarthritis, unspecified site; Z79.82 Long term (current) use of aspirin; Z79.899 Other long term (current) drug therapy; Z88.0 Allergy status to penicillin
CPT/HCPCS: 88305; 45378; 43239; J2704; J2001